=== PATIENT | male | born 1940 | race Caucasian/White ===

== ENCOUNTER → 2021-05-17 | Outpatient (CLI) | payer MEDICARE ==
--- NOTE | 2021-05-17 13:12 | RAD ---
MRI of the cervical spine without contrast 05/17/2021 CLINICAL HISTORY: Arm weakness, right greater than left. Bilateral leg weakness. TECHNIQUE: Unenhanced T1-weighted, T2-weighted and inversion recovery sagittal and gradient echo and T2-weighted axial images of the cervical spine were obtained. FINDINGS: Minimal lateral curvature of the cervical spine is seen convex to the left. There is straig htening of the normal cervical lordosis. Degenerative signal changes are seen involving all of the di sks of the cervical spine. Degenerative signal changes are seen within the marrow surrounding these d iscs. Loss of height of the C5-6 and C6-7 discs is noted. No area of abnormal signal intensity is see n involving the cervical spinal cord. At the C2-3 disc space there is a minimal generalized disc bulge. Degenerative changes are seen invol ving the uncovertebral and facet joints, right greater than left. These findings do not result in sig nificant central spinal canal or neural foraminal stenosis. At the C3-4 disc space there is a mild generalized disc bulge. Degenerative changes are seen involvin g the uncovertebral and facet joints, right greater than left. These findings when combined do not re sult in significant central spinal canal stenosis. Mild to moderate right neural foraminal stenosis i s seen. The left neural foramen is patent. At the C4-5 disc space there is a mild generalized disc bulge. Superimposed on this disc bulge is a f ocal central disc protrusion. This measures 3 mm in AP diameter. Degenerative changes are seen involv ing the uncovertebral and facet joints, right greater than left. These findings efface the anterior C SF without resulting in significant central spinal canal stenosis. Mild to moderate right greater eugenia n left neural foraminal stenosis is seen. At the C5-6 disc space there is a mild to moderate generalized disc bulge. This is eccentric to the r ight. Superimposed on this disc bulge is a right paracentral disc osteophyte complex. This measures 5 mm in AP diameter. Degenerative changes are seen involving the uncovertebral and facet joints, right greater than left. These findings efface the anterior and posterior CSF resulting in mild to moderat e right greater than left central spinal canal stenosis. Mild right-sided cord impingement is seen. M oderate to severe right greater than left neural foraminal stenosis is noted. At the C6-7 disc space there is a mild to moderate generalized disc bulge. This is eccentric to the l eft. Degenerative changes are seen involving the uncovertebral and facet joints bilaterally. These fi ndings when combined result in mild to moderate left greater than right central spinal canal stenosis . Mild left-sided cord impingement is seen. Moderate to severe left greater than right neural foramin al stenosis is noted. At the C7-T1 disc space there is a minimal generalized disc bulge. Degenerative changes are seen invo lving the facet joints bilaterally. These findings do not result in significant central spinal canal or neural foraminal stenosis. IMPRESSION: Degenerative changes are seen throughout the cervical spine. These findings result in mil d to moderate right greater than left central spinal canal stenosis with mild right-sided cord imping ement at C5-6 and mild to moderate left greater than right central spinal canal stenosis with mild le ft-sided cord impingement at C6-7. Mild to moderate right neural foraminal stenosis is seen at C3-4. Mild to moderate right greater than left neural foraminal stenosis is seen at C4-5. Moderate to sever e right greater than left neural foraminal stenosis is seen at C5-6. Moderate to severe left greater than right neural foraminal stenosis is seen at C6-7. Electronically signed by: Hayder Persaud MD (05/17/2021 1:09 PM) [id number]
== END ==
LOC: MRI 08:59
PROVIDERS: ATTEND Family Medicine
DX: M47.813 Spondylosis without myelopathy or radiculopathy, cervicothoracic region (principal); M48.02 Spinal stenosis, cervical region; M50.23 Other cervical disc displacement, cervicothoracic region; R29.898 Other symptoms and signs involving the musculoskeletal system; M62.81 Muscle weakness (generalized)
CPT/HCPCS: 72141

== ENCOUNTER → 2021-07-17 | Outpatient (CLI) | payer MEDICARE ==
--- NOTE | 2021-07-17 10:12 | RAD ---
EXAMINATION: Magnetic resonance imaging (MRI) of the lumbar spine without contrast 07/17/2021 8:13 AM HISTORY: Lumbar radiculopathy TECHNIQUE: Multiplanar multi-weighted MRI of the lumbar spine was performed without intravenous contr ast using the standard lumbar spine protocol. Contrast information: None administered. COMPARISON: None available. FINDINGS: There is 2 mm retrolisthesis of T12 on L1. There is 3 mm retrolisthesis of L4 on L5. There is chronic anterior wedge deformity of the L4 vertebral body with 50 percent height loss. No significant retrop ulsion. Schmorl's nodes are identified at T12, L1 and L2 without significant height loss. Modic type I endplate degenerative changes are identified at L2-3 and L3-L4. Conus medullaris terminates at L1. Distal spinal cord signal intensity is normal in all sequences. There is a sclerotic density identifi ed at the left L4 pedicle measuring 1.8 x 1.5 cm. There is ectasia of infrarenal abdominal aorta jose guadalupe uring 2.7 x 2.5 cm. Visualized sacrum appears intact. L1-L2: There is mild disc bulge. Mild facet arthropathy. Mild left neuroforaminal stenosis. No signif icant spinal canal stenosis. L2-L3: Mild disc bulge asymmetric to the right. Mild facet arthropathy. Moderate bilateral neuroforam inal stenosis. Mild spinal canal stenosis. There is mild right lateral recess stenosis. L3-L4: There is a circumferential disc bulge. There is a right foraminal disc extrusion. Mild facet a rthropathy ligamentum flavum infolding. Severe right and moderate left neuroforaminal stenosis. There is moderate spinal canal stenosis with right lateral recess stenosis. L4-L5: There is a circumferential disc bulge. There is a left foraminal disc protrusion. Mild to mode rate facet arthropathy. Moderate to severe bilateral neuroforaminal stenosis. Mild spinal canal steno sis. L5-S1: Mild disc bulge. Moderate facet arthropathy. Mild neuroforaminal stenosis. No spinal canal evans nosis. IMPRESSION: Moderate degenerative changes of the lumbar spine, as detailed above. Focal sclerotic density involving the left L4 pedicle measuring 1.8 x 1.5 cm. This finding is indeter minate, although favors benign etiology such as a bone island. Correlate with any prior instrumentati on in this region as signal intensity could be seen with cement. Electronically signed by: Lydia Carrillo MD (07/17/2021 10:10 AM) [id number]
== END ==
LOC: MRI 08:52
PROVIDERS: ATTEND Neurological Surgery
DX: M47.27 Other spondylosis with radiculopathy, lumbosacral region (principal); M51.16 Intervertebral disc disorders with radiculopathy, lumbar region; M51.45 Schmorl's nodes, thoracolumbar region; M48.07 Spinal stenosis, lumbosacral region; I77.811 Abdominal aortic ectasia
CPT/HCPCS: 72148